=== PATIENT | male | born 1945 | race Caucasian/White ===

== ENCOUNTER 2020-03-17 12:35 | Emergency (ER) | payer MEDICARE, OTHER ==
[2020-03-17 13:50] LABS: #Eosinphils 0.1 thou/uL (0.0-0.7); #Lymphocytes 1.7 thou/uL (1.20-3.40); #Monocytes 0.6 thou/uL (0.11-0.59); %Basophils 0.7 % (0.0-1.0); %Eosinophils 1.3 % (0.0-10.0); %Monocytes 11.3 % (0.0-10.0); %Neutrophils 55.7 % (42.0-75.0); Hemoglobin 16.5 g/dL (14.0-18.0); Mean Corpuscular HGB CONC 34.5 g/dL (32.0-36.0); Mean Corpuscular Hemoglobin 31.6 pg (27.0-31.0); Mean Corpuscular Volume 91.5 fL (78.0-98.0); Platelet Count 189 thou/uL (130-400); RBC Distribution Width 12.6 % (11.5-14.5); Red Blood Cell (RBC) Count 5.23 mill/uL (4.70-6.10); White Blood Cell (WBC) Count 5.4 thou/uL (4.8-10.8)
[2020-03-17 14:15] LABS: ALT (SGPT) 36 U/L (8-55); AST (SGOT) 26 U/L (5-34); Albumin 3.7 g/dL (3.4-4.8); Alkaline Phosphatase 63 U/L (40-110); Anion Gap 11 mmol/L (10-20); BUN (Urea Nitrogen) 8 mg/dL (8.4-25.7); Bilirubin, Total 1.2 mg/dL (0.2-1.2); CK (CPK) 36 U/L (30-200); Calc. Creatinine Clearance 0 mL/min (70-130); Calcium 8.7 mg/dL (7.8-10.44); Carbon Dioxide 28 mmol/L (23-31); Chloride 102 mmol/L (98-107); Estimated GFR-MDRD 80; Globulin 2.5 g/dL (2.4-3.5); Glucose 111 mg/dL (83-110); Potassium 3.6 mmol/L (3.5-5.1); Protein, Total 6.2 g/dL (5.8-8.1); Sodium 137 mmol/L (136-145)
--- NOTE | 2020-03-17 14:15 | RAD ---
PORTABLE CHEST: DATE: 03/17/2020. PROVIDED CLINICAL HISTORY: Weakness. FINDINGS: Comparison 08/31/2019. Cardiac and mediastinal silhouette is within normal limits. No focal consoli dation, pleural fluid, or pneumothorax apparent. IMPRESSION: No evidence for an acute cardiopulmonary process. POS: ELVA
[2020-03-17 15:39] LABS: Bilirubin Negative (Negative); Blood, Urine Negative (Negative); Clarity Clear (Clear); Glucose, Urine (Dipstick) Normal (Negative); Ketone, Urine Negative (Negative); Leukocyte Negative Leu/uL (Negative); Nitrite Negative (Negative); Protein, Urine (Dipstick) Negative (Neg-Trace); Specific Gravity, Urine 1.004 (1.002-1.036); Urobilinogen Normal mg/dL (Less than 2)
[2020-03-18 13:18] LABS: SARS-CoV-2 MS2 Positive; SARS-CoV-2 N Gene Negative; SARS-CoV-2 S Gene Negative; SARS-CoV-2 orf1ab Negative
== END 2020-03-17 16:25 | disposition home or self-care (01) ==
LOC: ERS 12:35
DX: R53.83 Other fatigue (principal); R53.1 Weakness; Z20.828 Contact with and (suspected) exposure to other viral communicable diseases; I10 Essential (primary) hypertension; E78.5 Hyperlipidemia, unspecified; Z87.891 Personal history of nicotine dependence; Z79.899 Other long term (current) drug therapy; Z79.82 Long term (current) use of aspirin
CPT/HCPCS: 71045; 80053; 81003; 82550; 84484; 85025; 93005; 99285; U0003; 36415; 87635

== ENCOUNTER 2020-05-28 17:53 | Inpatient (IN) | payer MEDICARE, OTHER ==
[~2020-05-28 17:53] MED LIST: Iopamidol-370 76% 500 ML 1 ML ONE
[2020-05-28 18:42] LABS: #Basophils 0.1 thou/uL (0.0-0.2); #Neutrophils 11.3 thou/uL (1.40-6.50); %Basophils 0.8 % (0.0-1.0); %Eosinophils 0.3 % (0.0-10.0); %Lymphocytes 13.6 % (21.0-51.0); %Neutrophils 78.3 % (42.0-75.0); Hemoglobin 18.5 g/dL (14.0-18.0); Mean Corpuscular HGB CONC 34.4 g/dL (32.0-36.0); Mean Corpuscular Hemoglobin 31.5 pg (27.0-31.0); Mean Corpuscular Volume 91.5 fL (78.0-98.0); Mean Platelet Volume 8.2 fL (7.4-10.4); Platelet Count 217 thou/uL (130-400); RBC Distribution Width 12.7 % (11.5-14.5); Red Blood Cell (RBC) Count 5.87 mill/uL (4.70-6.10); White Blood Cell (WBC) Count 14.4 thou/uL (4.8-10.8)
[2020-05-28] MEDS ORDERED: Morphine 4 MG/ML VIAL ONE ×3 (18:52→21:29)
[2020-05-28] MEDS ORDERED: Ondansetron PF 4 MG/2 ML Vial ONE (18:53)
[2020-05-28 19:05] LABS: ALT (SGPT) 48 U/L (8-55); AST (SGOT) 32 U/L (5-34); Albumin 4.3 g/dL (3.4-4.8); Alkaline Phosphatase 64 U/L (40-110); Anion Gap 15 mmol/L (10-20); BUN (Urea Nitrogen) 12 mg/dL (8.4-25.7); Bilirubin, Total 1.8 mg/dL (0.2-1.2); Calc. Creatinine Clearance 0 mL/min (70-130); Calcium 9.1 mg/dL (7.8-10.44); Carbon Dioxide 23 mmol/L (23-31); Chloride 102 mmol/L (98-107); Estimated GFR-MDRD 80; Globulin 2.9 g/dL (2.4-3.5); Glucose 118 mg/dL (83-110); Lipase 23 U/L (8-78); Potassium 3.7 mmol/L (3.5-5.1); Protein, Total 7.2 g/dL (5.8-8.1); Sodium 136 mmol/L (136-145)
--- NOTE | 2020-05-28 20:08 | CT ---
EXAM: CT ABDOMEN AND PELVIS HISTORY: Abdominal pain. Evaluate for small bowel obstruction. COMPARISON: 08/30/2019 Procedure: Multiple contiguous axial images were obtained and a CT of the abdomen and pelvis with IV contrast. C oronal reformats were performed. FINDINGS: Lower Chest: Scarring and atelectasis in the lung bases Vessels: Normal caliber aorta. Minimal atherosclerosis. No periaortic fat stranding. Heart: Normal heart size. There are coronary calcifications Abdomen: Portal vein:Patent Gallbladder: Surgically absent Liver: There are peripherally nodular enhancing lesions in the left and right hepatic lobe, measuring 2.8 x 2.8 and 2.4 x 2.6 cm respectively. Correlation made with previous CT suggests probable hemangiomas. Confirmation with nonemergent abdomen MRI. Hypodensity in the left hepatic lobe is favor ed to be a 1.7 cm hepatic cyst cyst. Pancreas: within normal limits. Spleen: within normal limits. Adrenals: within normal limits. Kidneys: Symmetric enhancement. No obstructive uropathy. Redemonstration of a large exophytic cyst em anating from the lower pole of the left kidney. Adjacent smaller cyst is also identified. Peritoneum: No ascites or free air, no fluid collection. Bowel: Limited evaluation by the lack of oral contrast. There are multiple fluid-filled loops of jeju num and proximal ileum. The distal ileum and terminal ileum are decompressed. The transition segment appears to be air in the hypogastric region (coronal images 56 through 70 and axial images 59 through 65. There is a normal caliber appendix. Scattered diverticulosis in a nondistended colon. No evidence of diverticulitis. Mesentery and Retroperitoneum: No enlarged mesenteric or retroperitoneal lymph nodes. Abdominal Wall: within normal limits. Pelvis: Reproductive Organs: Reproductive organs are unremarkable. Pelvis: No mass, lymphadenopathy, free air or free fluid. Bladder: within normal limits. Bones: within normal limits. IMPRESSION: Small bowel obstruction Transcribed Date/Time: 05/28/2020 9:17 PM
[2020-05-28 20:13] LABS: Bacteria/HPF None Seen HPF (None Seen); Bilirubin Negative (Negative); Blood, Urine Negative (Negative); Clarity Clear (Clear); Glucose, Urine (Dipstick) Normal (Negative); Ketone, Urine Trace mg/dL (Negative); Leukocyte Negative Leu/uL (Negative); Nitrite Negative (Negative); Protein, Urine (Dipstick) 30 mg/dL (Neg-Trace); Specific Gravity, Urine 1.021 (1.002-1.036); Squamous Epithelial 0-3 HPF (0-3); WBC/HPF 0-3 HPF (0-3); pH, Urine 7.5 (5.0-9.0)
[2020-05-28] MEDS ORDERED: Ondansetron PF 4 MG/2 ML Vial IVP PRN (23:00)
[2020-05-28] MEDS ORDERED: Morphine 4 MG/ML VIAL SLOW IVP PRN (23:00)
[2020-05-28] MEDS ORDERED: Ondansetron ODT 4 MG TAB SL PRN (23:00)
[2020-05-28] MEDS: Sodium Chloride 0.9% 1,000 ML IV SCH (23:21)
[2020-05-29 00:24] VITALS: BMI 32.2
[2020-05-29] MEDS: Cepastat Lozenges 1 LOZ PO PRN ×2 (06:22→07:48)
[2020-05-29] MEDS: Sodium Chloride 0.9% 1,000 ML IV SCH (06:26)
[2020-05-29] MEDS ORDERED: Morphine 2 MG/ML VIAL SLOW IVP PRN (09:35)
[2020-05-29] MEDS ORDERED: Ondansetron ODT 4 MG TAB PO PRN (09:35)
[2020-05-29] MEDS ORDERED: hydrALAZINE 20 MG/ML VIAL SLOW IVP PRN (09:35)
[2020-05-29] MEDS ORDERED: Ondansetron PF 4 MG/2 ML Vial IVP PRN (09:35)
[2020-05-29] MEDS ORDERED: Morphine 4 MG/ML VIAL SLOW IVP PRN (09:35)
[2020-05-29] MEDS ORDERED: Lorazepam 2 MG/ML VIAL SLOW IVP PRN (09:35)
[2020-05-29] MEDS ORDERED: Lactated Ringer's 1,000 ML IV SCH (09:45)
--- NOTE | 2020-05-29 09:59 | HP ---
HISTORY OF PRESENT ILLNESS: Earle Peña is a 74-year-old male patient, retired, experiencing acute onset yesterday of abdominal pain. This was central abdomen, followed by nausea and vomiting. Actually, this pain started 2 days ago. Yesterday, he had a small "toothpaste" bowel movement and has not had any since. He passed a small amount of flatus this morning. His abdomen became distended. He was seen in the emergency room, and a CAT scan of the abdomen and pelvis obtained revealing changes consistent with a bowel obstruction. He has a large left renal cyst and some hepatic changes consistent with hemangiomas that when compared to CT scan earlier this year has been unchanged. Approximately 9 months ago, August 2019, [place] hospitalized for a bowel obstruction, treated for 3 days there. It sounds as though the hospitalist saw him. NG tube suction was applied. This resolved. He has not had any intervening problems until this event. ALLERGIES: CIPRO, MEPERIDINE, PROMETHAZINE, SHRIMP. SOCIAL HISTORY: Tobacco, none. Alcohol, rarely. HOME MEDICATIONS: 1. Aspirin. 2. Fish oil. 3. B12. 4. Losartan. 5. Potassium. 6. Pravachol. 7. Klonopin. 8. Atenolol. PAST SURGICAL HISTORY: Vasectomy, tonsillectomy, open cholecystectomy by Dr. Dubois many years ago, lumbar disk surgery. The patient has had a colonoscopy [address] Liriano and told to come back in 10 years. FAMILY HISTORY: Noncontributory except for his mother of coronary artery disease. No history of colon cancer. REVIEW OF SYSTEMS: [place] noncontributory. PAST MEDICAL HISTORY: Obesity, BMI of 32. Coronary artery disease. At age 50, he had an MO and stents placed, initially followed by Dr. Hinton, now followed by Dr. Castro. He reports that 2 months ago, he saw Dr. Castro, had a cardiac PET scan that was unremarkable for ischemia. He is asymptomatic as far as coronary symptoms. He denies dyspnea. He denies chest pain. He denies chest pressure. The patient is retired and is fairly sedentary. He is . PHYSICAL EXAMINATION: VITAL SIGNS: Height 6 feet 1 inch, weight 244 pounds, 32 BMI. Temperature 98.3, pulse 93, and blood pressure 135/93. LUNGS: Clear to auscultation. CARDIAC: Regular rate and rhythm without murmur or gallop. ABDOMEN: Soft, distended, tympanitic. Nontender. Right subcostal scar consistent with open cholecystectomy. No hernias in groin, umbilical, or ventral noted. EXTREMITIES: Without ankle edema. Palpable pulses. LABORATORY DATA: White count 14, hemoglobin 18. Sodium 136, potassium 3.7, creatinine 0.93, GFR 80, and bilirubin 1.8. Liver function tests otherwise normal. Lipase normal. ASSESSMENT AND PLAN: 1. Changes consistent with bowel obstruction. He had a similar event August in [facility]. We would treat him with NG tube to suction today, plan a small-bowel follow-through tomorrow. His abdomen is soft and nontender, although distended and tympanitic. There is no indication for ischemic bowel. 2. Dehydration. He is hemoconcentrated with hemoglobin of 18. We will plan hydration. 3. Increase activity level. 4. Check x-rays of abdomen. 5. Hypertension. 6. Coronary artery disease, stable status post PET scan by Dr. Castro 2 months ago and he is asymptomatic as far as ischemic heart disease. Job ID: [id number]
[2020-05-29] MEDS ORDERED: Chloraseptic Spray 180 ml Bottle PO PRN (10:11)
[2020-05-29] MEDS: Lactated Ringer's 1,000 ML IV SCH ×4 (10:47→23:29)
--- NOTE | 2020-05-29 11:28 | RAD ---
EXAM: 2 views of the abdomen HISTORY: Small bowel obstruction COMPARISON: CT abdomen/pelvis 05/28/2020 FINDINGS: 2 views of the abdomen shows multiple air-filled loops of small bowel in the abdomen. Air-f luid levels are seen within the small bowel loops on upright examination. No free air is seen on upright examination. An NG tube is seen in the stomach. Cholecystectomy clips are seen. No suspicious calcifications are seen. Contrast is seen in the urinary bladder. Degenerative changes are seen in the spine. IMPRESSION: Air-filled loops of small bowel may be secondary to ileus or small bowel obstruction.
[2020-05-29 12:00] LABS: SARS-CoV-2 MS2 Positive; SARS-CoV-2 N Gene Negative; SARS-CoV-2 S Gene Negative; SARS-CoV-2 by NAA Not Detected (NotDetected); SARS-CoV-2 orf1ab Negative
[2020-05-29] MEDS: Enoxaparin Sodium 40 MG/0.4 ML SYRINGE SC SCH (20:13)
[2020-05-30] MEDS: Lactated Ringer's 1,000 ML IV SCH ×2 (03:58→13:36)
[2020-05-30 05:29] LABS: #Eosinphils 0.1 thou/uL (0.0-0.7); #Lymphocytes 1.6 thou/uL (1.20-3.40); #Monocytes 0.6 thou/uL (0.11-0.59); #Neutrophils 4.3 thou/uL (1.40-6.50); %Basophils 0.5 % (0.0-1.0); %Eosinophils 0.9 % (0.0-10.0); %Lymphocytes 23.8 % (21.0-51.0); %Monocytes 9.6 % (0.0-10.0); %Neutrophils 65.3 % (42.0-75.0); Mean Corpuscular HGB CONC 33.1 g/dL (32.0-36.0); Mean Corpuscular Volume 93.7 fL (78.0-98.0); Mean Platelet Volume 8.5 fL (7.4-10.4); Platelet Count 161 thou/uL (130-400); RBC Distribution Width 12.6 % (11.5-14.5); Red Blood Cell (RBC) Count 5.18 mill/uL (4.70-6.10); White Blood Cell (WBC) Count 6.6 thou/uL (4.8-10.8)
[2020-05-30 05:52] LABS: ALT (SGPT) 27 U/L (8-55); AST (SGOT) 19 U/L (5-34); Albumin 3.4 g/dL (3.4-4.8); Alkaline Phosphatase 44 U/L (40-110); Anion Gap 15 mmol/L (10-20); BUN (Urea Nitrogen) 14 mg/dL (8.4-25.7); Bilirubin, Total 1.8 mg/dL (0.2-1.2); Calc. Creatinine Clearance 138 mL/min (70-130); Calcium 8.1 mg/dL (7.8-10.44); Carbon Dioxide 24 mmol/L (23-31); Chloride 103 mmol/L (98-107); Estimated GFR-MDRD Greater than 90; Globulin 2.4 g/dL (2.4-3.5); Glucose 79 mg/dL (83-110); Potassium 3.6 mmol/L (3.5-5.1); Protein, Total 5.8 g/dL (5.8-8.1); Sodium 138 mmol/L (136-145)
[2020-05-30] MEDS: Pantoprazole 40 MG VIAL IVP SCH (08:25)
[2020-05-30] MEDS: Ketorolac Tromethamine 30 MG/ML VIAL IVP PRN (09:00)
--- NOTE | 2020-05-30 11:27 | PDOC.FMACP ---
Advance Care Planning - Problem (1) Palliative care encounter Status: Acute Code(s): Z51.5 - ENCOUNTER FOR PALLIATIVE CARE (2) Bowel obstruction Status: Acute Code(s): K56.609 - UNSP INTESTNL OBST, UNSP TO PARTIAL VERSUS COMPLETE OBST (3) CAD (coronary artery disease) Status: Acute Code(s): I25.10 - ATHSCL HEART DISEASE OF [place] CORONARY ARTERY W/O ANG PCTRS - Note Participants: patient, palliative care Summary: Palliative Care presented Advanced Care Planning, opportunity to decline. The diagnosis, prognosis and goals of care were discussed. Appropriate forms and documentation to accomplish the goals of care were discussed. All questions were answered. Mr Peña wishes to remain with full resuscitation measures, and aggressive therapies at this time. 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 Information in relation to Advanced Care planning left with patient, please refer to Palliative Care notes in note section. Time Spent (mins): 15
--- NOTE | 2020-05-30 11:28 | RAD ---
Small bowel follow-through HISTORY: Bowel obstruction. FINDINGS: Gastrografin contrast was administered through the nasogastric tube, opacifying a nondisten ded stomach and proximal jejunum. At 1 hour, contrast is present within mildly dilated loops of jejunum. Fluid also extends into the il eum and right colon. IMPRESSION : Rapid small bowel transit. No evidence of high-grade bowel obstruction. The distended loops of proximal to mid jejunum may refle ct a low grade/intermittent partial obstruction.
[2020-05-30] MEDS ORDERED: Potassium Chloride 20 MEQ TAB PO SCH (12:15)
--- NOTE | 2020-05-30 13:59 | PRG ---
DATE OF SERVICE: 05/30/2020 SUBJECTIVE: Earle Peña is doing well today. Small-bowel follow-through showed transit of contrast into the colon small bowel loops. The patient states he has baseline protuberant abdomen. He is obese. OBJECTIVE: LUNGS: Clear to auscultation. CARDIAC: Regular rate and rhythm without murmur or gallop. ABDOMEN: Soft, obese, nontender, non tympanitic. EXTREMITIES: Unremarkable. VITAL SIGNS: Temperature 97.6 degrees, heart rate 82, blood pressure 159/88. LABORATORY DATA: White count 6, hemoglobin 16, basic metabolic profile is normal. ASSESSMENT AND PLAN: Bowel obstruction, resolved nonoperatively. We would saline lock him, advance to regular diet, resume his home medications, just to continue his IV fluids. If he tolerates his diet, we will plan discharge home tomorrow. Job ID: [id number]
[2020-05-30] MEDS ORDERED: MD-Gastroview 120 ML BOT ONE (15:14)
[2020-05-30] MEDS ORDERED: Atorvastatin Calcium 10 MG TAB PO SCH (21:00)
[2020-05-30] MEDS: Enoxaparin Sodium 40 MG/0.4 ML SYRINGE SC SCH (21:14)
[2020-05-31 07:52] LABS: Anion Gap 12 mmol/L (10-20); BUN (Urea Nitrogen) 17 mg/dL (8.4-25.7); Calc. Creatinine Clearance 132 mL/min (70-130); Carbon Dioxide 25 mmol/L (23-31); Chloride 104 mmol/L (98-107); Estimated GFR-MDRD Greater than 90; Glucose 82 mg/dL (83-110); Potassium 3.4 mmol/L (3.5-5.1); Sodium 138 mmol/L (136-145)
[2020-05-31] MEDS: Pantoprazole 40 MG VIAL IVP SCH (07:52)
[2020-05-31] MEDS: Ketorolac Tromethamine 30 MG/ML VIAL IVP PRN (07:52)
[2020-05-31] MEDS ORDERED: Atenolol 25 MG TAB PO SCH (09:00)
[2020-05-31] MEDS ORDERED: Aspirin Chewable 81 MG TAB PO SCH ×2 (09:00)
[2020-05-31] MEDS ORDERED: clonazePAM 0.5 MG TAB PO SCH (09:00)
[2020-05-31] MEDS ORDERED: Fish Oil 1,000 MG CAP PO SCH (09:00)
[2020-05-31] MEDS ORDERED: Cyanocobalamin (Vitamin B-12) 1,000 MCG TAB PO SCH (09:00)
[2020-05-31] MEDS ORDERED: Losartan 25 MG TAB PO SCH (09:00)
[2020-05-31 11:35] VITALS: BP 131/89; TEMP 97.8
--- NOTE | 2020-05-31 20:45 | DIS ---
DATE OF ADMISSION: 05/28/2020 DATE OF DISCHARGE: 05/31/2020 DISCHARGE DIAGNOSIS: Small-bowel obstruction, nonoperative management. PROCEDURE IN THIS HOSPITALIZATION: CT scan of the abdomen and pelvis in the emergency room, small-bowel follow-through. FOLLOWUP: P.sylvie grover. HISTORY: A 74-year-old male patient with a prior history of similar episode, treated at [facility] in 2018, treated nonoperatively for a bowel obstruction. On this occasion, he presented, CAT scan suggested a bowel obstruction. He describes toothpaste type bowel movements. CAT scan suggested bowel obstruction. NG tube was placed, actually did not have that high output. He underwent a small bowel follow-through after 24 hours of NG tube suctioning and this was normal with some mildly dilated loops persistent. He, however, tolerated a regular diet after removal of his NG tube. He has been discharged home, to resume his home medications, aspirin, fish oil, B12, losartan, potassium, Pravachol, Klonopin, and atenolol. Past history includes cholecystectomy, open by Dr. Ayala; lumbar disk surgery; tonsillectomy; vasectomy. He had a colonoscopy five years ago by Dr. Liriano, was told to come back 10 years. At this point, he will be discharged home and follow up with me as needed. Diet and activity as tolerated. Job ID: [id number]
== END 2020-05-31 12:35 | disposition home or self-care (01) | DRG 390 ==
LOC: ERS 17:53 → SURG A 21:48
PROVIDERS: ADMIT Specialist; ATTEND Specialist
DX: K56.609 Unspecified intestinal obstruction, unspecified as to partial versus complete obstruction (principal); Z20.828 Contact with and (suspected) exposure to other viral communicable diseases; I25.10 Atherosclerotic heart disease of native coronary artery without angina pectoris; E66.9 Obesity, unspecified; E86.0 Dehydration; I10 Essential (primary) hypertension; Z88.1 Allergy status to other antibiotic agents; Z88.8 Allergy status to other drugs, medicaments and biological substances; Z79.82 Long term (current) use of aspirin; Z90.89 Acquired absence of other organs; Z90.49 Acquired absence of other specified parts of digestive tract; I25.2 Old myocardial infarction; Z95.5 Presence of coronary angioplasty implant and graft; Z68.32 Body mass index [BMI] 32.0-32.9, adult; Z98.890 Other specified postprocedural states
CPT/HCPCS: 36415; 74019; 74177; 74250; 80048; 80053; 81003; 81015; 83690; 85025; 87635; 96374; 96375; 96376; C9113; J1650; J1885; J2270; J2405; Q9963; Q9967; U0003

== ENCOUNTER 2022-01-15 13:37 | Outpatient (CLI) | payer MEDICARE ==
[2022-01-15 14:51] LABS: Bilirubin Neg (Negative); Blood, Urine Negative (Negative); Clarity Clear (Clear); Glucose, Urine (Dipstick) Normal (Negative); Ketone, Urine Negative (Negative); Leukocyte Negative (Negative); Nitrite Negative (Negative); Protein, Urine (Dipstick) Negative (Neg-Trace); Specific Gravity, Urine 1.015 (1.002-1.036); Urobilinogen Normal mg/dL (Less than 2); pH, Urine 6.5 (5.0-9.0)
[2022-01-15 15:00] LABS: #Eosinphils 0.1 10x3/uL (0.0-0.5); #Monocytes 0.5 10x3/uL (0.0-1.1); %Basophils 0.4 % (0.0-2.0); %Eosinophils 1.3 % (0.0-6.0); %Lymphocytes 34.4 % (18.0-47.0); %Monocytes 9.4 % (0.0-10.0); %Neutrophils 54.5 % (40.0-75.0); Hemoglobin 15.9 g/dL (13.5-17.5); Mean Corpuscular HGB CONC 33.5 g/dL (32.0-36.0); Mean Corpuscular Hemoglobin 30.9 pg (27.0-33.0); Mean Platelet Volume 10.6 fl (7.4-10.4); Platelet Count 180 10x3/uL (150-450); RBC Distribution Width 13.2 % (11.5-14.5); Red Blood Cell (RBC) Count 5.15 10x6/uL (4.32-5.72); White Blood Cell (WBC) Count 5.5 10x3/uL (3.5-10.5)
[2022-01-15 15:11] LABS: Anion Gap 11 mmol/L (10-20); BUN (Urea Nitrogen) 8 mg/dL (8.4-25.7); Calc. Creatinine Clearance 0 mL/min (70-130); Calcium 9.2 mg/dL (7.8-10.44); Carbon Dioxide 29 mmol/L (23-31); Chloride 104 mmol/L (98-107); Glucose 103 mg/dL (83-110); Potassium 3.9 mmol/L (3.5-5.1); Sodium 140 mmol/L (136-145)
[2022-01-15 23:02] LABS: SARS-CoV-2 PCR by NAA Not Detected (NotDetected)
== END 2022-01-15 13:38 | disposition home or self-care (01) ==
LOC: LABBT 13:37
PROVIDERS: ATTEND Orthopaedic Surgery Hand Surgery
DX: Z01.812 Encounter for preprocedural laboratory examination (principal); G56.02 Carpal tunnel syndrome, left upper limb; G56.22 Lesion of ulnar nerve, left upper limb; Z20.822 Contact with and (suspected) exposure to COVID-19
CPT/HCPCS: 80048; 81003; 85025; 93005; U0003; U0005; 93010

== ENCOUNTER 2022-01-18 09:17 | Day surgery (SDC) | payer MEDICARE ==
[2022-01-16 11:00] VITALS: BMI 34.4
[2022-01-18] MEDS ORDERED: Betamet Acet/Betamet Na Ph 30 MG/5 ML VIAL ONE (13:22)
[2022-01-18] MEDS ORDERED: Bacitracin Zinc Ointment 30 gm TUBE ONE (13:22)
[2022-01-18] MEDS ORDERED: Neomycin-Polymyxin 1 ML AMP ONE (13:22)
[2022-01-18] MEDS ORDERED: Bupivacaine PF 0.5% 30 ML VIAL ONE ×2 (13:22→15:06)
[2022-01-18] MEDS ORDERED: ceFAZolin (BATCH) 2 GM/100 ML BAG ONE (14:31)
[2022-01-18] MEDS ORDERED: fentaNYL Citrate/PF 100 MCG/2 ML SYRINGE ONE ×2 (14:38)
[2022-01-18] MEDS ORDERED: Famotidine/PF 20 mg/2ml Vial ONE (14:38)
[2022-01-18] MEDS ORDERED: ePHEDrine 50 MG/ML VIAL ONE (14:41)
[2022-01-18] MEDS ORDERED: Dexamethasone 20 MG/5 ML VIAL ONE (14:41)
[2022-01-18] MEDS ORDERED: Ondansetron PF 4 MG/2 ML Vial ONE (14:41)
[2022-01-18] MEDS ORDERED: Lidocaine 1% PF 5 ML VIAL ONE (14:41)
[2022-01-18] MEDS ORDERED: PROPOFOL 200 MG/20 ML VIAL ONE (14:41)
== END 2022-01-18 18:15 | disposition home or self-care (01) ==
LOC: SDC 09:17
PROVIDERS: ATTEND Orthopaedic Surgery Hand Surgery
PROC: 01N50ZZ Release Median Nerve, Open Approach (ICD-10-PCS; principal; 2022-01-18)
PROC: 01N40ZZ Release Ulnar Nerve, Open Approach (ICD-10-PCS; 2022-01-18)
DX: G56.23 Lesion of ulnar nerve, bilateral upper limbs (principal); G56.02 Carpal tunnel syndrome, left upper limb; I11.9 Hypertensive heart disease without heart failure; K21.9 Gastro-esophageal reflux disease without esophagitis; E78.5 Hyperlipidemia, unspecified; E66.9 Obesity, unspecified; Z68.34 Body mass index [BMI] 34.0-34.9, adult; Z87.891 Personal history of nicotine dependence; Z79.82 Long term (current) use of aspirin; Z79.899 Other long term (current) drug therapy; Z88.1 Allergy status to other antibiotic agents; Z88.5 Allergy status to narcotic agent; Z88.8 Allergy status to other drugs, medicaments and biological substances; Z91.013 Allergy to seafood; Z95.5 Presence of coronary angioplasty implant and graft
CPT/HCPCS: 64718; 64719; 64721; C1889; J0690; J0702; J1100; J2405; J2704; J3490; S0020; S0028

== ENCOUNTER 2022-10-08 13:24 | Outpatient (CLI) | payer MEDICARE | END 2022-10-08 13:25 | disposition home or self-care (01) | LOC: MRI 13:24 | PROVIDERS: ATTEND Orthopaedic Surgery Hand Surgery | DX: M47.22 Other spondylosis with radiculopathy, cervical region (principal) | CPT/HCPCS: 72141 ==

== ENCOUNTER 2023-08-17 01:25 | Observation (INO) | payer MEDICARE ==
[2023-08-17 02:33] LABS: #Eosinphils 0.1 thou/uL (0.0-0.7); #Monocytes 0.9 thou/uL (0.11-0.59); #Neutrophils 3.8 thou/uL (1.40-6.50); %Basophils 0.3 % (0.0-1.0); %Eosinophils 1.2 % (0.0-10.0); %Lymphocytes 26.7 % (21.0-51.0); %Monocytes 13.6 % (0.0-10.0); Hematocrit 44.7 % (42.0-52.0); Hemoglobin 15.7 g/dL (14.0-18.0); Mean Corpuscular HGB CONC 35.1 g/dL (32.0-36.0); Mean Corpuscular Hemoglobin 31.3 pg (27.0-31.0); Mean Corpuscular Volume 89.2 fl (78.0-98.0); Mean Platelet Volume 10.3 fL (7.4-10.4); Platelet Count 186 10x3/uL (130-400); RBC Distribution Width 12.9 % (11.5-14.5); Red Blood Cell (RBC) Count 5.01 mill/uL (4.70-6.10); White Blood Cell (WBC) Count 6.6 10x3/uL (4.8-10.8)
[2023-08-17 02:56] LABS: ALT (SGPT) 29 U/L (8-55); AST (SGOT) 25 U/L (5-34); Alkaline Phosphatase 86 U/L (40-110); Anion Gap 15 mmol/L (10-20); BUN (Urea Nitrogen) 10 mg/dL (8.4-25.7); Bilirubin, Total 0.8 mg/dL (0.2-1.2); Calc. Creatinine Clearance 0 mL/min (70-130); Calcium 9.3 mg/dL (7.8-10.44); Carbon Dioxide 26 mmol/L (23-31); Chloride 103 mmol/L (98-107); Estimated GFR 83; Globulin 3.1 g/dL (2.4-3.5); Glucose 116 mg/dL (83-110); Potassium 3.9 mmol/L (3.5-5.1); Protein, Total 7.1 g/dL (5.8-8.1); Sodium 140 mmol/L (136-145)
[2023-08-17] MEDS ORDERED: Aspirin Chewable 81 MG TAB ONE (03:02)
[2023-08-17 04:21] LABS: Bacteria/HPF None Seen HPF (None Seen); Bilirubin Negative (Negative); Blood, Urine Negative (Negative); CAUTI Indications for Culture Alt mental st,lethar; Clarity Clear (Clear); Glucose, Urine (Dipstick) Normal (Negative); Ketone, Urine Negative (Negative); Leukocyte Negative Leu/uL (Negative); Nitrite Negative (Negative); Protein, Urine (Dipstick) Negative (Neg-Trace); RBC/HPF 0-3 HPF (0-3); Specific Gravity, Urine 1.005 (1.002-1.036); Squamous Epithelial None Seen HPF (0-3); Urobilinogen Normal mg/dL (Less than 2); WBC/HPF None Seen HPF (0-3)
[2023-08-17 04:22] LABS: Urine Culture Reflex No No
[2023-08-17 07:48] VITALS: TEMP 97.3; BMI 30.3
[2023-08-17] MEDS ORDERED: Meclizine HCl 12.5 MG TAB PO PRN (08:20)
[2023-08-17] MEDS ORDERED: Lorazepam 0.5 MG TAB PO PRN (08:20)
[2023-08-17] MEDS ORDERED: Iopamidol 370 76% 100 ML VIAL ONE (09:42)
[2023-08-17 15:39] VITALS: BP 159/93
== END 2023-08-17 17:55 | disposition home or self-care (01) ==
LOC: ERS 01:25 → ERHOLD 06:05
PROVIDERS: ADMIT Student in an Organized Health Care Education/Training Program; ATTEND Internal Medicine
DX: I25.10 Atherosclerotic heart disease of native coronary artery without angina pectoris (principal); I10 Essential (primary) hypertension; F41.9 Anxiety disorder, unspecified; E78.5 Hyperlipidemia, unspecified; K21.9 Gastro-esophageal reflux disease without esophagitis; I25.2 Old myocardial infarction; R42 Dizziness and giddiness; Z88.1 Allergy status to other antibiotic agents; Z88.8 Allergy status to other drugs, medicaments and biological substances; Z91.013 Allergy to seafood; Z90.49 Acquired absence of other specified parts of digestive tract; Z90.89 Acquired absence of other organs; Z79.899 Other long term (current) drug therapy; Z79.82 Long term (current) use of aspirin
CPT/HCPCS: 70496; 70498; 70551; 80053; 81001; 85025; 93005; 99285; G0378; Q9967

== ENCOUNTER 2024-03-12 12:34 | Outpatient (CLI) | payer MEDICARE | END 2024-03-12 12:35 | disposition home or self-care (01) | LOC: BICMRI 12:34 | PROVIDERS: ATTEND Family Medicine | DX: M51.14 Intervertebral disc disorders with radiculopathy, thoracic region (principal) | CPT/HCPCS: 72146 ==

== ENCOUNTER 2024-03-15 13:57 | Outpatient (CLI) | payer MEDICARE | END 2024-03-15 13:58 | disposition home or self-care (01) | LOC: BICRAD 13:57 | PROVIDERS: ATTEND Family Medicine | DX: M47.24 Other spondylosis with radiculopathy, thoracic region (principal) | CPT/HCPCS: 72070 ==

== ENCOUNTER 2025-04-24 03:40 | Emergency (ER) | payer MEDICARE ==
[2025-04-24 04:47] LABS: #Basophils Less than 0.03 10x3/uL (0.0-0.2); #Eosinophils 0.03 10x3/uL (0.0-0.7); #Monocytes 1.83 10x3/uL (0.11-0.59); #Neutrophils 6.35 10x3/uL (1.40-6.50); %Basophils 0.1 % (0.0-1.0); %Eosinophils 0.3 % (0.0-10.0); %Lymphocytes 24.0 % (21.0-51.0); %Monocytes 16.9 % (0.0-10.0); %Neutrophils 58.4 % (42.0-75.0); Hematocrit 49.1 % (42.0-52.0); Hemoglobin 17.0 g/dL (14.0-18.0); Mean Corpuscular Hemoglobin 30.9 pg (27.0-31.0); Mean Corpuscular Volume 89.1 fL (78.0-98.0); Platelet Count 187 10x3/uL (130-400); Red Blood Cell (RBC) Count 5.51 mill/uL (4.70-6.10); White Blood Cell (WBC) Count 10.85 10x3/uL (4.8-10.8)
[2025-04-24 06:35] LABS: ALT (SGPT) 31 U/L (Less than 45); AST (SGOT) 24 U/L (11-34); Albumin 3.6 g/dL (3.1-4.5); Alkaline Phosphatase 62 U/L (40-110); Anion Gap 14 mmol/L (10-20); BUN (Urea Nitrogen) 10 mg/dL (8.4-25.7); Bilirubin, Total 1.7 mg/dL (0.3-1.2); Calc. Creatinine Clearance 0 mL/min (70-130); Calcium 8.7 mg/dL (7.8-10.44); Carbon Dioxide 22 mmol/L (23-31); Chloride 106 mmol/L (98-107); Globulin 3.2 g/dL (2.4-3.5); Glucose 97 mg/dL (83-110); Lipase 33 U/L (8-78); Magnesium 1.7 mg/dL (1.6-2.6); Potassium 3.8 mmol/L (3.5-5.1); Sodium 138 mmol/L (136-145)
[2025-04-24] MEDS ORDERED: Iopamidol 370 76% 100 ML VIAL ONE (09:57)
== END 2025-04-24 08:25 | disposition home or self-care (01) ==
LOC: ERS 03:40
DX: K57.32 Diverticulitis of large intestine without perforation or abscess without bleeding (principal); I10 Essential (primary) hypertension; E78.00 Pure hypercholesterolemia, unspecified; Z79.82 Long term (current) use of aspirin; Z79.899 Other long term (current) drug therapy; Z95.5 Presence of coronary angioplasty implant and graft
CPT/HCPCS: 74177; 80053; 83690; 83735; 85025; Q9967